=== PATIENT | female | born 1960 | race Hispanic/Latino ===

== ENCOUNTER 2020-11-11 08:52 | Emergency (ER) | payer OTHER ==
[2020-11-11 09:21] LABS: Urine Blood 2+ (Negative); Urine Glucose Negative (Negative); Urine Protein Negative (Negative); Urine Specific Gravity 1.025 (1.005-1.030)
[2020-11-11 10:00] LABS: Absolute Lymphocytes (CBC) 0.5 K/uL (0.7-4.9); Basophils % 0.2 % (0-1.3); Hematocrit 43.2 % (36.0-45.0); Lymphocytes % 5.8 % (15.3-44.8); MPV 7.9 fL (7.6-11.3); RBC Red Blood Cell Count 5.32 M/uL (3.86-4.86)
[2020-11-11] MEDS ORDERED: NA CHLORIDE 0.9% 500 ML ONE (10:07)
[2020-11-11] MEDS ORDERED: MORPHINE 2 MG/ML SYR ONE (10:19)
[2020-11-11] MEDS ORDERED: ONDANSETRON 4 MG/2 ML VIAL ONE (10:20)
[2020-11-11 10:21] LABS: Albumin 3.6 g/dL (3.4-5.0); Bilirubin Direct 0.2 mg/dL (0-0.2); Bilirubin Total 0.6 mg/dL (0.2-1.0); Potassium 4.1 mmol/L (3.5-5.1); Protein, Total 7.5 g/dL (6.4-8.2)
--- NOTE | 2020-11-11 10:21 | RAD REPORT ---
EXAM DESCRIPTION: CTAbdomen Pelvis W Contrast - 11/11/2020 10:08 am CLINICAL HISTORY: . LUQ;Abd pain COMPARISON: Abdomen Pelvis W Contrast dated 06/07/2017; CT ABD PELVIS W CONTRAST dated 12/14/2013 TECHNIQUE: Biphasic CT imaging of the abdomen and pelvis was performed with 100 ml non-ionic IV cont rast. All CT scans are performed using dose optimization technique as appropriate and may include automated exposure control or mA/KV adjustment according to patient size. FINDINGS: Lower chest: No acute abnormality. Liver: Low-density lesion left hepatic lobe which is likely a cyst and unchanged. Biliary: No biliary ductal dilatation. Stomach: No significant focal abnormality. Duodenum: No significant focal abnormality. Pancreas: No significant abnormality. Spleen: No significant abnormality. Adrenal: No suspicious lesions. Kidney/ureter: No hydronephrosis. No renal calculi. Too small to characterize and/or benign appearing renal lesions are noted. Retroperitoneum: No retroperitoneal adenopathy. Vascular: No aneurysm. Bowel: No significant focal abnormality. Appendectomy. Peritoneum: No ascites or free air. Small fat containing umbilical hernia. Bladder: Grossly unremarkable. Reproductive: No adnexal masses. Hysterectomy. Bones: No acute fracture. Other: n/a IMPRESSION: No acute intra-abdominal or pelvic finding.
--- NOTE | 2020-11-11 10:34 | ER ---
Nurse's Notes [facility] Name: Alondra Pedraza Age: 60 yrs Sex: Female : 1960 Arrival Date: 11/11/2020 Time: 08:55 Bed 9 Private MD: Diagnosis: Abdominal pain, Generalized-Left upper quad Presentation: 11/11 09:00 Chief complaint: Patient states: i have stomach pain on my LEFT side of my stomach and tw2 goes to by back. and i am nauseous. it started Monday. Dr. Ny said i have a stone in my gallbladder. i have an appointment for cat scan tomorrow but the pain was too bad so it brought me here. Coronavirus screen: nausea, Client presents with at least one sign or symptom that may indicate coronavirus-19. Standard/surgical mask placed on the client. Provider contacted for isolation considerations. Ebola Screen: Patient denies travel to an Ebola-affected area in the 21 days before illness onset. Initial Sepsis Screen: Does the patient meet any 2 criteria? No. Patient's initial sepsis screen is negative. Does the patient have a suspected source of infection? No. Patient's initial sepsis screen is negative. Risk Assessment: Do you want to hurt yourself or someone else? Patient reports no desire to harm self or others. Onset of symptoms was November 11, 2020. 09:00 Acuity: JANETH 3 tw2 09:00 Method Of Arrival: Ambulatory tw2 Triage Assessment: 09:02 General: Appears in no apparent distress. obese, well groomed, Behavior is calm, tw2 cooperative, appropriate for age. Pain: Complains of pain in abdomen Pain radiates to back. GI: Reports lower abdominal pain, nausea. Historical: - Allergies: 09:02 No Known Allergies; tw2 - Home Meds: 09:02 metoprolol tartrate 25 mg Oral tab 1 tab 2 times per day [Active]; trazodone Oral tw2 [Active]; omeprazole 40 mg Oral cpDR 1 cap once daily [Active]; Calcium Citrate Oral [Active]; Vitamin B-12 Oral [Active]; - PMHx: 09:02 Hypertensive disorder; tw2 - PSHx: 09:02 Appendectomy; partial hysterectomy; right knee sx; tw2 - Immunization history:: Client reports receiving the 2nd dose of the Covid vaccine. - Social history:: Smoking status: Patient denies any tobacco usage or history of. Assessment: 09:13 General: Appears uncomfortable. Neuro: No deficits noted. Cardiovascular: No deficits tc5 noted. Respiratory: No deficits noted. GI: Reports upper abdominal pain, nausea, Pt reports ULQ pain that radiates to the back since last Monday. Vital Signs: 09:00 Weight 120.66 kg; Height 5 ft. 2 in. (157.48 cm) (R); tw2 09:06 BP 140 / 80; Pulse 117; Resp 18; Temp 98; Pulse Ox 99% on R/A; tw2 09:06 Pain 8/10; tw2 09:00 Body Mass Index 48.65 (120.66 kg, 157.48 cm) tw2 ED Course: 08:55 Patient arrived in ED. mr 08:56 Pranay Tamayo MD is Attending Physician. kdr 09:02 Triage completed. tw2 09:06 Arm band placed on. tw2 09:08 Marcelina Cruz, MARYAN is Primary Nurse. tc5 09:53 Inserted saline lock: 20 gauge in right antecubital area, using aseptic technique. tc5 Blood collected. 10:08 CT Abd/Pelvis - IV Contrast Only In Process Unspecified. EDMS 10:48 IV discontinued, intact, bleeding controlled, No redness/swelling at site. Pressure tc5 dressing applied. Administered Medications: 09:52 Drug: NS 0.9% 500 ml Route: IV; Rate: bolus; Site: right antecubital; tc5 10:48 Follow up: IV Status: Completed infusion tc5 09:58 Drug: Zofran (Ondansetron) 4 mg Route: IVP; Site: right antecubital; tc5 10:47 Follow up: Response: No adverse reaction; Nausea is decreased tc5 09:59 Not Given (Patient Refused): morphine 2 mg IVP once; RASS on ADMIN: Combtv4, Very tc5 Agttd3, Agttd2, Rstlss1, AlertClm0, Drwsy-1, Lt Sdtn-2, Mod Sdtn-3, Dp Sdtn-4, UnArsble-5 Outcome: 10:34 Discharge ordered by . kdr 10:48 Patient left the ED. tc5 Signatures: Dispatcher [employer] EDMS Rittger, Pranay, MD MD kdr Josue, Leslee mr Madyson Martin, MARYAN RN tw2 Marcelina Cruz RN RN tc5
--- NOTE | 2020-11-11 10:35 | EDPHYS ---
Physician Documentation [facility] Name: Alondra Pedraza Age: 60 yrs Sex: Female : 1960 Arrival Date: 11/11/2020 Time: 08:55 Bed 9 Private MD: ED Physician Pranay Tamayo HPI: 11/11 10:04 This 60 yrs old Female presents to ER via Ambulatory with complaints of kdr Abdominal Pain, Nausea. 10:04 Patient complains of left upper quadrant abdominal pain for about the last 3 months. kdr This is been intermittent but progressively getting worse. Today she presents with nausea and left upper quadrant pain. She also complains of upper back pain/upper thoracic spine pain. She states that this gets worse when she stands up. She has had multiple abdominal complaints in the past. She relates that when she had her appendix out, her pain was on the left side of her abdomen. She also states she has a history of hepatic cyst and renal cyst. She has an appointment tomorrow with a specialist to evaluate the liver abnormalities. Onset: The symptoms/episode began/occurred gradually, 3 month(s) ago. Severity of symptoms: At their worst the symptoms were mild moderate just prior to arrival, in the emergency department the symptoms are unchanged. The patient has experienced similar episodes in the past, multiple times, chronically. The patient has not recently seen a physician. Historical: - Allergies: 09: No Known Allergies; tw2 - Home Meds: 09:02 metoprolol tartrate 25 mg Oral tab 1 tab 2 times per day [Active]; trazodone Oral tw2 [Active]; omeprazole 40 mg Oral cpDR 1 cap once daily [Active]; Calcium Citrate Oral [Active]; Vitamin B-12 Oral [Active]; - PMHx: 09:02 Hypertensive disorder; tw2 - PSHx: 09:02 Appendectomy; partial hysterectomy; right knee sx; tw2 - Immunization history:: Client reports receiving the 2nd dose of the Covid vaccine. - Social history:: Smoking status: Patient denies any tobacco usage or history of. ROS: 10:04 Constitutional: Negative for fever, chills, and weight loss, Eyes: Negative for injury, kdr pain, redness, and discharge, ENT: Negative for injury, pain, and discharge, Neck: Negative for injury, pain, and swelling, Cardiovascular: Negative for chest pain, palpitations, and edema, Respiratory: Negative for shortness of breath, cough, wheezing, and pleuritic chest pain, Back: Negative for injury and pain, : Negative for injury, bleeding, discharge, and swelling, MS/Extremity: Negative for injury and deformity, Skin: Negative for injury, rash, and discoloration, Neuro: Negative for headache, weakness, numbness, tingling, and seizure activity. Psych: Negative for depression, anxiety, suicide ideation, homicidal ideation, and hallucinations, Allergy/Immunology: Negative for hives, rash, and allergies, Endocrine: Negative for neck swelling, polydipsia, polyuria, polyphagia, and marked weight changes, Hematologic/Lymphatic: Negative for swollen nodes, abnormal bleeding, and unusual bruising. 10:04 Abdomen/GI: Positive for abdominal pain, nausea, Negative for black/tarry stool, rectal pain, rectal bleeding, bowel incontinence. Exam: 10:04 Constitutional: This is a well developed, well nourished patient who is awake, alert, kdr and in no acute distress. Head/Face: Normocephalic, atraumatic. Eyes: Pupils equal round and reactive to light, extra-ocular motions intact. Lids and lashes normal. Conjunctiva and sclera are non-icteric and not injected. Cornea within normal limits. Periorbital areas with no swelling, redness, or edema. Neck: Trachea midline, no thyromegaly or masses palpated, and no cervical lymphadenopathy. Supple, full range of motion without nuchal rigidity, or vertebral point tenderness. No Meningismus. Chest/axilla: Normal chest wall appearance and motion. Nontender with no deformity. No lesions are appreciated. Cardiovascular: Regular rate and rhythm with a normal S1 and S2. No gallops, murmurs, or rubs. Normal PMI, no JVD. No pulse deficits. Respiratory: Lungs have equal breath sounds bilaterally, clear to auscultation and percussion. No rales, rhonchi or wheezes noted. No increased work of breathing, no retractions or nasal flaring. Back: No spinal tenderness. No costovertebral tenderness. Full range of motion. Skin: Warm, dry with normal turgor. Normal color with no rashes, no lesions, and no evidence of cellulitis. MS/ Extremity: Pulses equal, no cyanosis. Neurovascular intact. Full, normal range of motion. Neuro: Awake and alert, GCS 15, oriented to person, place, time, and situation. Cranial nerves II-XII grossly intact. Motor strength 5/5 in all extremities. Sensory grossly intact. Cerebellar exam normal. Normal gait. Psych: Awake, alert, with orientation to person, place and time. Behavior, mood, and affect are within normal limits. 10:04 Abdomen/GI: Inspection: obese Bowel sounds: active, Palpation: soft, mild abdominal tenderness, in the left upper quadrant. Vital Signs: 09:00 Weight 120.66 kg; Height 5 ft. 2 in. (157.48 cm) (R); tw2 09:06 BP 140 / 80; Pulse 117; Resp 18; Temp 98; Pulse Ox 99% on R/A; tw2 09:06 Pain 8/10; tw2 09:00 Body Mass Index 48.65 (120.66 kg, 157.48 cm) tw2 MDM: 10:04 Data reviewed: vital signs, nurses notes, lab test result(s), radiologic studies. kdr 10:34 Patient medically screened. [facility] 11/11 09:20 Order name: Urine Dipstick-Ancillary; Complete Time: 10:30 [facility] 11/11 09:38 Order name: Basic Metabolic Panel; Complete Time: 10:30 [facility] 11/11 09:38 Order name: CBC with Diff; Complete Time: 10:30 [facility] 11/11 09:38 Order name: Hepatic Function; Complete Time: 10:30 [facility] 11/11 09:38 Order name: Lipase; Complete Time: 10:30 [facility] 11/11 10:32 Order name: CREATININE WHOLE BLOOD [facility] 11/11 09:38 Order name: IV Saline Lock; Complete Time: 09:53 [facility] 11/11 09:38 Order name: Labs collected and sent; Complete Time: 09:53 [facility] 11/11 09:38 Order name: CT Abd/Pelvis - IV Contrast Only; Complete Time: 10:30 kdr Administered Medications: 09:52 Drug: NS 0.9% 500 ml Route: IV; Rate: bolus; Site: right antecubital; tc5 10:48 Follow up: IV Status: Completed infusion tc5 09:58 Drug: Zofran (Ondansetron) 4 mg Route: IVP; Site: right antecubital; tc5 10:47 Follow up: Response: No adverse reaction; Nausea is decreased tc5 09:59 Not Given (Patient Refused): morphine 2 mg IVP once; RASS on ADMIN: Combtv4, Very tc5 Agttd3, Agttd2, Rstlss1, AlertClm0, Drwsy-1, Lt Sdtn-2, Mod Sdtn-3, Dp Sdtn-4, UnArsble-5 Disposition Summary: 11/11/20 10:34 Discharge Ordered Location: Home kdr Problem: an ongoing problem kdr Symptoms: have improved kdr Condition: Stable kdr Diagnosis - Abdominal pain, Generalized - Left upper quad kdr Followup: kdr - With: Private Physician - When: 2 - 3 days - Reason: If symptoms return, Further diagnostic work-up, Recheck today's complaints, Continuance of care, Re-evaluation by your physician Discharge Instructions: - Discharge Summary Sheet kdr - Abdominal Pain, Adult, [id number] kdr Forms: - Medication Reconciliation Form kdr - Thank You Letter kdr Prescriptions: - Zofran 4 mg Oral Tablet - take 1 tablet by ORAL route every 4-6 hours As needed; 12 tablet; Refills: 0, kdr Product Selection Permitted - Pepcid 20 mg Oral Tablet - take 1 tablet by ORAL route once daily; 20 tablet; Refills: 0, Product kdr Selection Permitted Signatures: Dispatcher [employer] Pranay Olivia MD MD kdr Madyson Martin RN RN tw2 Marcelina Cruz RN RN tc5
[2020-11-11 10:53] VITALS: BP 140/80; TEMP 98; O2SAT 99
== END 2020-11-11 10:48 | disposition home or self-care (01) ==
LOC: ER 08:52
DX: R10.12 Left upper quadrant pain (principal); I10 Essential (primary) hypertension
CPT/HCPCS: 96361; 85025; 80048; 36415; 82565; 80076; 81003; 83690; 74177; 96374; 99284; Q9967; J7040; J2405; J2270

== ENCOUNTER 2023-05-31 10:18 | Day surgery (SDC) | payer OTHER ==
[2023-05-31 08:47] LABS: Absolute Basophils 0.1 K/uL (0-0.5); Absolute Eosinophils 0.3 K/uL (0-0.5); Absolute Lymphocytes (CBC) 1.7 K/uL (0.7-4.9); Absolute Monocytes 0.6 K/uL (0.1-1.3); Absolute Neutrophil 3.8 K/uL (1.8-8.0); Basophils % 1.3 % (0-1.3); Hematocrit 41.4 % (36.0-45.0); Hemoglobin 13.7 g/dL (12.0-15.0); Lymphocytes % 26.9 % (15.3-44.8); MCH 27.1 pg (27.0-35.0); MCHC 32.9 g/dL (32.0-36.0); MCV 82.3 fL (80-100); Monocytes % 9.5 % (3.3-12.3); Neutrophils % 58.3 % (41.7-73.7); Nucleated Red Blood Cells % 0.2 % (0-0); Platelets 252 thou/uL (152-406); RBC Red Blood Cell Count 5.04 M/uL (3.86-4.86); Red Cell Distribution Width 14.2 % (12.1-15.2)
[2023-05-31 09:00] LABS: Anion Gap 5.2 mEq/L (5.0-15.0); Potassium 4.2 mEq/L (3.5-5.1)
[2023-05-31] MEDS: Ringers Lactate 1,000 ML IV ONE (11:00)
[2023-05-31] MEDS ORDERED: propofoL 200 MG/20 ML VIAL IV ONE (11:41)
[2023-05-31] MEDS ORDERED: LIDOCAINE 1% MPF 5 ML VIAL ONE ×2 (11:41)
[2023-05-31 14:24] VITALS: BP 119/69; TEMP 97.3; O2SAT 96
== END 2023-05-31 13:35 | disposition home or self-care (01) ==
LOC: OR 10:18
PROVIDERS: ATTEND Surgery
PROC: 0DBN8ZX Excision of Sigmoid Colon, Via Natural or Artificial Opening Endoscopic, Diagnostic (ICD-10-PCS; principal; 2023-05-31 12:00)
DX: Z12.11 Encounter for screening for malignant neoplasm of colon (principal); K57.30 Diverticulosis of large intestine without perforation or abscess without bleeding; K64.8 Other hemorrhoids; I10 Essential (primary) hypertension; G47.33 Obstructive sleep apnea (adult) (pediatric); M19.90 Unspecified osteoarthritis, unspecified site
CPT/HCPCS: 85025; 80048; 36415; 88304; 45380; J2704; J2001 ×2; J7120; 88305; 93005